=== PATIENT | male | born 1945 | race African-American/Black ===

== ENCOUNTER 2017-10-10 14:19 | Inpatient (IN) | payer MEDICARE, MEDICAID ==
[~2017-10-10] VITALS: Ht 180.3 cm; Wt 81.8 kg
[2017-10-10] MEDS ORDERED: VITAMIN B-1100 MG ORAL (18:08)
[2017-10-10] MEDS ORDERED: FOLIC ACID1 MG ORAL (18:08)
[2017-10-10] MEDS ORDERED: BISACODYL5 MG RECTAL (18:08)
[2017-10-10] MEDS ORDERED: FLEET ENEMA133 ML RECTAL (18:08)
[2017-10-10] MEDS ORDERED: MOM30 ML ORAL (18:08)
[2017-10-10] MEDS ORDERED: MULTIVITAMINS1 EAC2 ORAL (18:08)
[2017-10-10 18:38] VITALS: BP 123/69
[2017-10-10 20:00] VITALS: BP 130/68
[2017-10-10] MEDS ORDERED: Bisacodyl EC 5mg tab ORAL PRN (22:45)
[2017-10-10] MEDS ORDERED: Fleet's Enema 133ml RECTAL PRN (22:45)
[2017-10-10] MEDS ORDERED: Albuterol/Ipratropium 3ml neb HHN PRN (22:45)
[2017-10-10] MEDS ORDERED: Milk of Magnesia 30ml Ud ORAL PRN (22:45)
[2017-10-11] VITALS (7 sets, daily range): BP systolic 108–148; BP diastolic 57–75
[2017-10-11 08:12] LABS: BASOPHILS % (AUTO) 1.6 % (0.0-2.0); EOSINOPHILS % (AUTO) 2.3 % (0.0-3.0); HEMATOCRIT 42.6 % (42.0-52.0); HEMOGLOBIN 14.3 G/DL (14.2-18.0); LYMPHOCYTES % (AUTO) 47.3 % (20.0-45.0); MEAN CORPUSCULAR VOLUME 93 FL (80-99); MONOCYTES % (AUTO) 10.3 % (1.0-10.0); NEUTROPHILS % (AUTO) 38.6 % (45.0-75.0); PLATELET COUNT 158 K/UL (150-450); RED BLOOD COUNT 4.56 M/UL (4.70-6.10); RED CELL DISTRIBUTION WIDTH 11.3 % (11.6-14.8)
[2017-10-11 08:21] LABS: ALANINE AMINOTRANSFERASE 20 U/L (12-78); ALBUMIN 3.4 G/DL (3.4-5.0); ALBUMIN/GLOBULIN RATIO 0.9 (1.0-2.7); ALKALINE PHOSPHATASE 68 U/L (46-116); ANION GAP 8 mmol/L (5-15); ASPARTATE AMINO TRANSFERASE 19 U/L (15-37); BILIRUBIN,TOTAL 0.8 MG/DL (0.2-1.0); BLOOD UREA NITROGEN 15 mg/dL (7-18); CALCIUM 9.2 MG/DL (8.5-10.1); CARBON DIOXIDE 27 MMOL/L (21-32); CHLORIDE 105 MMOL/L (98-107); CREATININE 1.1 MG/DL (0.55-1.30); POTASSIUM 3.7 MMOL/L (3.5-5.1); SODIUM 140 MMOL/L (136-145)
[2017-10-11] MEDS: Azithromycin 250mg tab ORAL SCH (08:30)
[2017-10-11] MEDS: Thiamine 100mg tab ORAL SCH (08:32)
--- NOTE | 2017-10-11 09:27 | Diagnostic Imaging Report ---
Indication: Cough Technique: One view of the chest Comparison: none Findings: There is parenchymal volume loss parenchymal and pleural scarring in the right lung apex. A calcified granuloma is seen in the aortopulmonary window. There is some pleural calcification at the right lateral lung base. There is blunting of the right costophrenic angle which could indicate pleural thickening versus fluid. The left lung and pleural space are largely clear. No definite infiltrates Impression: Right-sided pleural thickening versus fluid Fairly extensive chronic pleural and parenchymal disease on the right, as described Evidence of old granulomatous disease
--- NOTE | 2017-10-11 13:00 | Consultation ---
History of Present Illness General Date patient seen: Oct 11, 2017 Present Illness HPI 71 yo male with hx of mmp and alcohol dependence came for medical stabilization. the pt is confused and is a poor historian he was unable to answer the questions. and is disoriented. the pt was calm and not agitated Allergies: Coded Allergies: No Known Allergies (Unverified , 10/10/17) Medication History Scheduled Folic Acid* (Folic Acid*), 1 MG ORAL DAILY, (Reported) Multivitamins* (Multivitamins*), 1 TAB ORAL DAILY, (Reported) Thiamine Hcl* (Vitamin B-1*), 100 MG ORAL DAILY, (Reported) Scheduled PRN Bisacodyl* (Dulcolax*), 10 MG RECTAL for Constipation, (Reported) Magnesium Hydroxide (Milk of Magnesia), 30 ML ORAL for Constipation, (Reported) Na Phos,M-B/Na Phos,Di-Ba* (Fleet Enema*), 133 ML RECTAL for Constipation, ( Reported) Patient History Limited by: medical condition History Provided By: Patient, Medical Record, PMD Healthcare decision maker N Resuscitation status Full Code Advanced Directive on File Past Medical/Surgical History Past Medical/Surgical History: (1) COPD EXERCABATION Review of Systems Psychiatric: Reports: prior hx, anxiety, depressed feelings, emotional problems Physical Exam General Appearance: no apparent distress, alert Neurologic: oriented x 3, responsive, depressed affect Last 24 Hour Vital Signs Date Time Temp Pulse Resp B/P (MAP) Pulse Ox O2 Delivery O2 Flow Rate FiO2 10/11/17 12:00 98.4 50 20 148/74 (98) 99 98.4 10/11/17 08:03 56 16 Room Air 21 10/11/17 08:00 Room Air 10/11/17 08:00 97.8 53 20 114/61 (78) 100 97.8 10/11/17 04:00 97.9 55 20 128/67 (87) 100 97.9 10/11/17 00:00 98.2 57 20 126/72 (90) 100 98.2 10/10/17 21:09 Room Air 10/10/17 20:00 98.4 58 20 130/68 (88) 100 98.4 10/10/17 18:38 98.1 57 21 123/69 (87) 100 98.1 10/10/17 18:20 Room Air Intake and Output 10/10/17 10/11/17 19:00 07:00 Output Total 800 ml Balance -800 ml Output Urine Total 800 ml Laboratory Tests Test 10/11/17 07:45 White Blood Count 4.0 K/UL (4.8-10.8) L Red Blood Count 4.56 M/UL (4.70-6.10) L Hemoglobin 14.3 G/DL (14.2-18.0) Hematocrit 42.6 % (42.0-52.0) Mean Corpuscular Volume 93 FL (80-99) Mean Corpuscular Hemoglobin 31.4 PG (27.0-31.0) H Mean Corpuscular Hemoglobin Concent 33.7 G/DL (32.0-36.0) Red Cell Distribution Width 11.3 % (11.6-14.8) L Platelet Count 158 K/UL (150-450) Mean Platelet Volume 8.3 FL (6.5-10.1) Neutrophils (%) (Auto) 38.6 % (45.0-75.0) L Lymphocytes (%) (Auto) 47.3 % (20.0-45.0) H Monocytes (%) (Auto) 10.3 % (1.0-10.0) H Eosinophils (%) (Auto) 2.3 % (0.0-3.0) Basophils (%) (Auto) 1.6 % (0.0-2.0) Sodium Level 140 MMOL/L (136-145) Potassium Level 3.7 MMOL/L (3.5-5.1) Chloride Level 105 MMOL/L (98-107) Carbon Dioxide Level 27 MMOL/L (21-32) Anion Gap 8 mmol/L (5-15) Blood Urea Nitrogen 15 mg/dL (7-18) Creatinine 1.1 MG/DL (0.55-1.30) Estimat Glomerular Filtration Rate mL/min (>60) Glucose Level 99 MG/DL (74-106) Calcium Level 9.2 MG/DL (8.5-10.1) Total Bilirubin 0.8 MG/DL (0.2-1.0) Aspartate Amino Transf (AST/SGOT) 19 U/L (15-37) Alanine Aminotransferase (ALT/SGPT) 20 U/L (12-78) Alkaline Phosphatase 68 U/L (46-116) Total Protein 7.4 G/DL (6.4-8.2) Albumin 3.4 G/DL (3.4-5.0) Globulin 4.0 g/dL Albumin/Globulin Ratio 0.9 (1.0-2.7) L Height (Feet): 5 Height (Inches): 11.00 Weight (Pounds): 183 Medications Current Medications Medications (Trade) Dose Ordered Sig/Aggie Route PRN Reason Start Time Stop Time Status Last Admin Dose Admin Albuterol/ Ipratropium (Albuterol/ Ipratropium) 3 ml Q4H PRN HHN Shortness of Breath 10/10/17 22:45 10/15/17 22:44 Azithromycin (Zithromax) 500 mg DAILY ORAL 10/11/17 09:00 10/18/17 08:59 10/11/17 08:30 Bisacodyl (Dulcolax) 10 mg NEEDED PRN ORAL Constipation 10/10/17 22:45 11/09/17 22:44 Chlorhexidine Gluconate (Kianna-Hex 2%) 1 applic DAILY@2000 TOPIC 10/11/17 20:00 11/10/17 19:59 Folic Acid (Folate) 1 mg DAILY ORAL 10/11/17 09:00 11/10/17 08:59 10/11/17 08:30 Magnesium Hydroxide (Mom) 30 ml NEEDED PRN ORAL Constipation 10/10/17 22:45 11/09/17 22:44 Multivitamins (Multivitamins) 1 tab DAILY ORAL 10/11/17 09:00 11/10/17 08:59 10/11/17 08:30 Prednisone (predniSONE) 40 mg DAILY ORAL 10/11/17 09:00 11/10/17 08:59 10/11/17 08:30 Sodium Phosphate (Fleet's Sodium Phosl Enema) 133 ml NEEDED PRN RECTAL Constipation 10/10/17 22:45 11/09/17 22:44 Thiamine HCl (Vitamin B1) 100 mg DAILY ORAL 10/11/17 09:00 11/10/17 08:59 10/11/17 08:32 Assessment/Plan Status: stable Assessment/Plan Dementia encephalopathy alcohol dependence valium prn folate thiamine Joel Vega MD Oct 11, 2017 13:00
[2017-10-11] MEDS ORDERED: Dyna-Hex 2% Top Sol 2oz TOPIC SCH (20:00)
--- NOTE | 2017-10-11 20:42 | Cardiology Progress Note ---
Assessment/Plan Assessment/Plan [id number] tft vit level ekg echo hold all neg ionotropic agents Objective Last 24 Hour Vital Signs Date Time Temp Pulse Resp B/P (MAP) Pulse Ox O2 Delivery O2 Flow Rate FiO2 10/11/17 16:00 98.2 54 20 115/65 (82) 97 98.2 10/11/17 12:00 98.4 50 20 148/74 (98) 99 98.4 10/11/17 08:03 56 16 Room Air 21 10/11/17 08:00 Room Air 10/11/17 08:00 97.8 53 20 114/61 (78) 100 97.8 10/11/17 04:00 97.9 55 20 128/67 (87) 100 97.9 10/11/17 00:00 98.2 57 20 126/72 (90) 100 98.2 10/10/17 21:09 Room Air Intake and Output 10/10/17 10/11/17 19:00 07:00 Output Total 800 ml Balance -800 ml Output Urine Total 800 ml Laboratory Tests Test 10/11/17 07:45 White Blood Count 4.0 K/UL (4.8-10.8) L Red Blood Count 4.56 M/UL (4.70-6.10) L Hemoglobin 14.3 G/DL (14.2-18.0) Hematocrit 42.6 % (42.0-52.0) Mean Corpuscular Volume 93 FL (80-99) Mean Corpuscular Hemoglobin 31.4 PG (27.0-31.0) H Mean Corpuscular Hemoglobin Concent 33.7 G/DL (32.0-36.0) Red Cell Distribution Width 11.3 % (11.6-14.8) L Platelet Count 158 K/UL (150-450) Mean Platelet Volume 8.3 FL (6.5-10.1) Neutrophils (%) (Auto) 38.6 % (45.0-75.0) L Lymphocytes (%) (Auto) 47.3 % (20.0-45.0) H Monocytes (%) (Auto) 10.3 % (1.0-10.0) H Eosinophils (%) (Auto) 2.3 % (0.0-3.0) Basophils (%) (Auto) 1.6 % (0.0-2.0) Sodium Level 140 MMOL/L (136-145) Potassium Level 3.7 MMOL/L (3.5-5.1) Chloride Level 105 MMOL/L (98-107) Carbon Dioxide Level 27 MMOL/L (21-32) Anion Gap 8 mmol/L (5-15) Blood Urea Nitrogen 15 mg/dL (7-18) Creatinine 1.1 MG/DL (0.55-1.30) Estimat Glomerular Filtration Rate mL/min (>60) Glucose Level 99 MG/DL (74-106) Calcium Level 9.2 MG/DL (8.5-10.1) Total Bilirubin 0.8 MG/DL (0.2-1.0) Aspartate Amino Transf (AST/SGOT) 19 U/L (15-37) Alanine Aminotransferase (ALT/SGPT) 20 U/L (12-78) Alkaline Phosphatase 68 U/L (46-116) Total Protein 7.4 G/DL (6.4-8.2) Albumin 3.4 G/DL (3.4-5.0) Globulin 4.0 g/dL Albumin/Globulin Ratio 0.9 (1.0-2.7) L Tj Ordonez MD Oct 11, 2017 20:42
[2017-10-11 22:52] LABS: APPEARANCE,URINE CLEAR; BILIRUBIN, URINE NEGATIVE (NEGATIVE); GLUCOSE, URINE (UA) NEGATIVE (NEGATIVE); KETONES,URINE NEGATIVE (NEGATIVE); LEUKOCYTE ESTERASE ,URINE NEGATIVE (NEGATIVE); NITRITE,URINE NEGATIVE (NEGATIVE); PH,URINE 6 (4.5-8.0); PROTEIN,URINE NEGATIVE (NEGATIVE); UROBILINOGEN,URINE 4 MG/DL (0.0-1.0)
[2017-10-11 22:55] LABS: COLOR,URINE YELLOW
--- NOTE | 2017-10-11 23:45 | History and Physical Report ---
DATE OF ADMISSION: 10/10/2017 NOTE: POOR AUDIO HISTORY OF PRESENT ILLNESS: The patient is a 71-year-old male, came to the hospital for COPD exacerbation, also was found to have bradycardia. The patient is IV line. cough sputum production. No fever. No chills. PAST MEDICAL HISTORY: Smokes half-pack a day. Denies any . MEDICATIONS: See the list. REVIEW OF SYSTEMS: Generalized weakness, tired, fatigue, and getting . PHYSICAL EXAMINATION: GENERAL: This is an elderly male who is currently awake and feeling okay. VITAL SIGNS: Blood pressure is 130/70, pulse 80. HEENT: NAD. CHEST: Bilateral few crackles and wheezes. CARDIOVASCULAR: Regular rhythm. No gallop. No murmur. ABDOMEN: Soft. Positive bowel sounds. Nontender. EXTREMITIES: No swelling. GENITOURINARY: Deferred. LABORATORY AND DIAGNOSTIC DATA: this morning. ASSESSMENT: 1. Acute chronic obstructive pulmonary disease exacerbation. 2. Hypertension. 3. Bradycardia. 4. Generalized weakness. PLAN: We will add steroid, bronchodilator treatments. Continue . Consider cardiology consult for bradycardia. Regan Thompson M.D. DR: ALEXSANDER JOB#: [id number] CC:
[2017-10-12] VITALS: BP_SYST 115; BP_SYST 118; BP_SYST 120; BP_DIAS 58; BP_DIAS 62; BP_DIAS 68
--- NOTE | 2017-10-12 00:45 | Consultation ---
DATE OF CONSULTATION: 10/11/2017 CARDIOLOGY CONSULTATION CONSULTING PHYSICIAN: Tj Ordonez M.D. REFERRING PHYSICIAN: Regan Thompson M.D. REASON FOR REFERRAL: Bradycardia. HISTORY OF PRESENT ILLNESS: This is an elderly gentleman who is a poor historian. The patient is admitted to the hospital for COPD with exacerbation. The patient was noted to have some bradycardia, for which consultation requested. He really has not had any pain in the chest or shortness of breath, although he does wake up at night because of shortness of breath. He is able to go back to bed. No dizziness or lightheadedness. PAST MEDICAL HISTORY: According to chart, history of schizophrenia, alcohol abuse intoxication, anemia, psychotic disorder, gastroesophageal reflux disease with esophagitis, urinary tract infections, systemic hypertension, chronic obstructive pulmonary disease, sepsis, pleural effusion, and pulmonary fibrosis. MEDICATIONS: His medications at the convalescent facility include Dulcolax, , folic acid, milk of magnesia, multivitamins. ALLERGIES: He reportedly is allergic to Prolixin. SOCIAL HISTORY: He smokes and drinks alcoholic beverages. Does not use drugs. REVIEW OF SYSTEMS: GASTROINTESTINAL: He has had some nausea. GENITOURINARY: Negative. PULMONARY: Positive for coughing. CONSTITUTION: Fevers. NEUROLOGIC: Negative. PHYSICAL EXAMINATION: GENERAL: Shows an elderly gentleman, in no respiratory distress. NECK: Supple. No jugular venous distention. LUNGS: Rather clear to auscultation and percussion. CARDIAC: Regular rhythm. Bradycardic. No heaves, thrills, or gallops noted. ABDOMEN: Soft and nontender. Positive bowel sounds. EXTREMITIES: There is no clubbing, cyanosis, or edema. LABORATORY AND DIAGNOSTIC DATA: White count of 4, hemoglobin 14.3, and platelet count of 158. Sodium is 140, potassium 3.7, chloride 105, bicarbonate 26, BUN of 15, creatinine 0.8, and glucose of 99. Calcium is 9.2. Albumin of 3.4. He has had a chest x-ray performed today and that showed right-sided pleural thickness versus fluid with extensive chronic pleural parenchymal disease on the right side. His electrocardiogram shows sinus bradycardia, first-degree AV block, left anterior fascicular block, basically borderline trifascicular block. ASSESSMENT AND PLAN: 1. Bradycardia. 2. Trifascicular block. 3. Interstitial lung disease, pulmonary fibrosis. 4. Chronic obstructive pulmonary disease. 5. History of pleural effusion. 6. Schizophrenia per records. 7. Gastroesophageal reflux disease. Dr. Thompson, this patient was seen in cardiac consultation. The patient is somewhat bradycardic, but does not appear to be symptomatic from it. EKG will be repeated. Thyroid stimulating hormone and labs will be ordered for tomorrow morning. An echocardiogram will also be ordered and he is being treated for his pulmonary fibrosis and may need pulmonary evaluation. Tj Ordonez M.D. DR: NICHOLAS JOB#: [id number] CC:
[2017-10-12 04:00] VITALS: BP 136/68
[2017-10-12 06:30] LABS: CHOLESTEROL 161 MG/DL (< 200); HDL CHOLESTEROL 42 MG/DL (40-60); TRIGLYCERIDES 33 MG/DL (30-150)
[2017-10-12 08:00] VITALS: BP 133/58
[2017-10-12] MEDS: Thiamine 100mg tab ORAL SCH (08:32)
[2017-10-12] MEDS: Azithromycin 250mg tab ORAL SCH (08:32)
[2017-10-12 12:00] VITALS: BP 134/67
--- NOTE | 2017-10-12 12:40 | General Progress Note ---
Assessment/Plan Status: stable Assessment/Plan Dementia encephalopathy alcohol dependence mdd valium prn folate thiamine the pt was provided st/ro Subjective Date patient seen: Oct 12, 2017 Neurologic/Psychiatric: Reports: anxiety, depressed Allergies: Coded Allergies: No Known Allergies (Unverified , 10/10/17) Subjective the pt was asleep was able to answer the questions forgetful Objective Last 24 Hour Vital Signs Date Time Temp Pulse Resp B/P (MAP) Pulse Ox O2 Delivery O2 Flow Rate FiO2 10/12/17 12:00 98.6 46 18 134/67 (89) 98 98.6 10/12/17 08:00 Room Air 10/12/17 08:00 97.9 40 18 133/58 (83) 100 97.9 10/12/17 07:58 49 16 Room Air 21 10/12/17 04:00 97.3 45 20 136/68 (90) 100 97.3 10/12/17 00:00 98.2 57 20 120/68 (85) 98 98.2 10/11/17 21:00 Room Air 10/11/17 21:00 97.0 58 20 110/58 (75) 98 97.0 10/11/17 21:00 97.0 69 20 108/57 (74) 97 97.0 10/11/17 21:00 97.0 59 20 114/75 (88) 97 97.0 10/11/17 20:00 98.4 50 20 127/65 (85) 98 98.4 10/11/17 20:00 58 16 Room Air 21 10/11/17 16:00 98.2 54 20 115/65 (82) 97 98.2 Intake and Output 10/11/17 10/12/17 19:00 07:00 Intake Total 800 ml 970 ml Output Total 150 ml 350 ml Balance 650 ml 620 ml Intake Oral 800 ml 970 ml Output Urine Total 150 ml 350 ml # Voids 2 6 # Bowel Movements 1 Laboratory Tests 10/11/17 21:20: Urine Color Yellow, Urine Appearance Clear, Urine pH 6, Urine Specific [place] 1.010, Urine Protein Negative, Urine Glucose (UA) Negative, Urine Ketones Negative, Urine Occult Blood 1+H, Urine Nitrite Negative, Urine Bilirubin Negative, Urine Urobilinogen 4H, Urine Leukocyte Esterase Negative, Urine RBC 2- 4H, Urine WBC 0-2, Urine Squamous Epithelial Cells Few, Urine Bacteria Few 10/12/17 04:20: Magnesium Level 1.6L, Troponin I 0.000, Pro-B-Type Natriuretic Peptide 86, Triglycerides Level 33, Cholesterol Level 161, LDL Cholesterol 121H, HDL Cholesterol 42, Cholesterol/HDL Ratio 3.8, Vitamin B12 Level 570, Thyroid Stimulating Hormone (TSH) 0.767, Cortisol AM Sample [Pending] Height (Feet): 5 Height (Inches): 11.00 Weight (Pounds): 180 General Appearance: no apparent distress, alert Neurologic: oriented x 3, responsive, depressed affect Joel Vega MD Oct 12, 2017 12:40
[2017-10-12 16:00] VITALS: BP 123/56
[2017-10-12 20:00] VITALS: BP 115/65
--- NOTE | 2017-10-12 20:23 | Cardiology Progress Note ---
Assessment/Plan Assessment/Plan 1. Bradycardia. 2. Trifascicular block. 3. Interstitial lung disease, pulmonary fibrosis. 4. Chronic obstructive pulmonary disease. 5. History of pleural effusion. 6. Schizophrenia per records. 7. Gastroesophageal reflux disease. tsh normal vit level ekg revwie hear rate 39 echo pending hold all neg chronotropic agents tele observation sicne tri fascualr block see if sig eneough pat to need pacing Subjective Cardiovascular: Denies: chest pain, lightheadedness, palpitations Respiratory: Denies: shortness of breath Gastrointestinal/Abdominal: Denies: abdominal pain Genitourinary: Denies: burning Objective Last 24 Hour Vital Signs Date Time Temp Pulse Resp B/P (MAP) Pulse Ox O2 Delivery O2 Flow Rate FiO2 10/12/17 20:00 98.2 55 20 115/65 (82) 100 98.2 10/12/17 19:52 58 16 Room Air 21 10/12/17 16:00 98.7 53 18 123/56 (78) 97 98.7 10/12/17 12:00 98.6 46 18 134/67 (89) 98 98.6 10/12/17 08:00 Room Air 10/12/17 08:00 97.9 40 18 133/58 (83) 100 97.9 10/12/17 07:58 49 16 Room Air 21 10/12/17 04:00 97.3 45 20 136/68 (90) 100 97.3 10/12/17 00:00 98.2 57 20 120/68 (85) 98 98.2 10/11/17 21:00 Room Air 10/11/17 21:00 97.0 58 20 110/58 (75) 98 97.0 10/11/17 21:00 97.0 69 20 108/57 (74) 97 97.0 10/11/17 21:00 97.0 59 20 114/75 (88) 97 97.0 General Appearance: alert Neck: supple Cardiovascular: normal rate, bradycardia Respiratory/Chest: chest wall non-tender, lungs clear Abdomen: normal bowel sounds, non tender, soft Extremities: no swelling Intake and Output 10/11/17 10/12/17 19:00 07:00 Intake Total 800 ml 970 ml Output Total 150 ml 350 ml Balance 650 ml 620 ml Intake Oral 800 ml 970 ml Output Urine Total 150 ml 350 ml # Voids 2 6 # Bowel Movements 1 Laboratory Tests Test 10/11/17 21:20 10/12/17 04:20 Urine Color Yellow Urine Appearance Clear Urine pH 6 (4.5-8.0) Urine Specific [place] 1.010 (1.005-1.035) Urine Protein Negative (NEGATIVE) Urine Glucose (UA) Negative (NEGATIVE) Urine Ketones Negative (NEGATIVE) Urine Occult Blood 1+ (NEGATIVE) H Urine Nitrite Negative (NEGATIVE) Urine Bilirubin Negative (NEGATIVE) Urine Urobilinogen 4 MG/DL (0.0-1.0) H Urine Leukocyte Esterase Negative (NEGATIVE) Urine RBC 2-4 /HPF (0 - 0) H Urine WBC 0-2 /HPF (0 - 0) Urine Squamous Epithelial Cells Few /LPF (NONE/OCC) Urine Bacteria Few /HPF (NONE) Magnesium Level 1.6 MG/DL (1.8-2.4) L Troponin I 0.000 ng/mL (0.000-0.056) Pro-B-Type Natriuretic Peptide 86 pg/mL (0-125) Triglycerides Level 33 MG/DL (30-150) Cholesterol Level 161 MG/DL (< 200) LDL Cholesterol 121 mg/dL (<100) H HDL Cholesterol 42 MG/DL (40-60) Cholesterol/HDL Ratio 3.8 (3.3-4.4) Vitamin B12 Level 570 PG/ML (193-986) Thyroid Stimulating Hormone (TSH) 0.767 uiU/mL (0.358-3.740) Cortisol AM Sample Pending Microbiology Date/Time Source Procedure Growth Status 10/10/17 19:00 Nasal Nares MRSA Culture - Final Staphylococcus Aureus - Mrsa Complete 10/10/17 19:00 Rectum VRE Culture - Final Enterococcus Faecium - Vre Complete 10/10/17 19:00 Rectum - Final NO CARBAPENEM-RESISTANT ENTEROBACTERI... Complete Tj Ordonez MD Oct 12, 2017 20:23
--- NOTE | 2017-10-12 21:15 | Progress Note ---
DATE: 10/12/2017 SUBJECTIVE: This 71-year-old male came with acute COPD and mild short of breath. No cough. No fever. He is clinically doing better. OBJECTIVE: VITAL SIGNS: His vital signs are stable. CHEST: Bilaterally few crackles. CARDIOVASCULAR: Regular rhythm. ABDOMEN: Soft. EXTREMITIES: CCE. NEUROLOGICAL: No focal deficit. ASSESSMENT: 1. Acute chronic obstructive pulmonary disease. 2. Bradycardia. 3. Hypertension. PLAN: Continue p.o. prednisone, antibiotic and bronchodilator treatments. Regan Thompson M.D. DR: ALEXSANDER JOB#: [id number] CC:
--- NOTE | 2017-10-12 23:30 | Consultation ---
DATE OF CONSULTATION: 10/12/2017 INFECTIOUS DISEASE CONSULTATION CONSULTING PHYSICIAN: Jaqui Rodríguez M.D. REQUESTING PHYSICIAN: Regan Thompson M.D. REASON FOR CONSULTATION: COPD exacerbation with bronchitis . Recommendation for antibiotics treatment. HISTORY OF PRESENT ILLNESS: The patient is a 71-year-old man with past medical history of schizophrenia, alcohol abuse, anemia, psych disorder, GERD, UTI, hypertension, COPD, and pleural effusion with pulmonary fibrosis, presented to [facility] emergency room with exacerbation of his COPD. The patient also was coughing and having mild shortness of breath. He was noted to have also bradycardia. The patient had a chest x-ray in the emergency room, it showed right-sided pleural thickening with fluid and chronic fibrotic changes due to COPD, so he was started on Zithromax. An Infectious Disease consultation was requested for further evaluation and management. PAST MEDICAL HISTORY: Significant for schizophrenia, alcohol abuse intoxication, anemia, psychotic disorder, GERD, esophagitis, UTI, hypertension, COPD, sepsis, pleural effusion, and pulmonary fibrosis. PAST SURGICAL HISTORY: Not on record. MEDICATIONS: He is currently on Zithromax. For the rest of his medications, please refer to MAR. ALLERGIES: He is allergic to Prolixin. SOCIAL HISTORY: The patient lives at the shelter facility. No recent drugs, tobacco, or alcohol. REVIEW OF SYSTEMS: Unable to obtain, the patient is poor historian. PHYSICAL EXAMINATION: GENERAL: An elderly male, lying in bed, nonverbal, not responsive, not in acute distress. VITAL SIGNS: Temperature 98.6 degrees, pulse 46, respirations 19, blood pressure 134/67, and pulse oximetry 98% on room air. HEENT: Normocephalic and atraumatic. Pupils reactive to light. Moist oral mucosa. NECK: Supple. No lymphadenopathy. CARDIOVASCULAR: Regular rate and rhythm. No murmur. LUNGS: Diminished breathing sounds and wheezing, mainly on the right side. ABDOMEN: Soft, nontender, and nondistended. Normal bowel sounds. EXTREMITY: No edema or cyanosis. LABORATORY AND DIAGNOSTIC DATA: His white count 4, hemoglobin of 14.3, and platelet count of 158. BUN of 15 and creatinine of 1.1. Urinalysis showed negative leukocyte esterase, negative nitrites, wbcs 0-2, and few bacteria. Microbiology, his nares was positive for MRSA and rectum was positive for VRE. Imaging, chest x-ray showed right-sided pleural thickening versus fluid, had extensive chronic pleural and parenchymal disease on the right and evidence of old granulomatous disease. ASSESSMENT AND RECOMMENDATION: 1. COPD with exacerbation. Continue Zithromax for five days, bronchodilators, and continue steroids. 2. Bradycardia. Cardiology team is following. Rule out conduction system abnormalities and check thyroid function. 3. Right pleural thickening with chronic pleural effusion. Recommend pulmonary evaluation and further imaging with CT scan of the chest. If possible, pleural biopsy in the future if no improvement. Thank you for the consult. ID will continue to follow. Jaqui Rodríguez M.D. DR: AMADO JOB#: [id number] CC: [email or web address]
[2017-10-13] VITALS: BP 139/71
[2017-10-13 04:00] VITALS: BP 117/69
[2017-10-13 08:00] VITALS: BP 111/59
[2017-10-13] MEDS: Azithromycin 250mg tab ORAL SCH (09:37)
[2017-10-13] MEDS: Thiamine 100mg tab ORAL SCH (09:37)
[2017-10-13 12:00] VITALS: BP 143/73
--- NOTE | 2017-10-13 13:25 | General Progress Note ---
Assessment/Plan Assessment/Plan Dementia encephalopathy alcohol dependence mdd valium prn folate thiamine the pt was provided st/ro Subjective Date patient seen: Oct 13, 2017 Allergies: Coded Allergies: No Known Allergies (Unverified , 10/10/17) Subjective the pt was asleep was able to answer the questions forgetful Objective Last 24 Hour Vital Signs Date Time Temp Pulse Resp B/P (MAP) Pulse Ox O2 Delivery O2 Flow Rate FiO2 10/13/17 12:00 98.3 45 18 143/73 (96) 99 98.3 10/13/17 12:00 46 10/13/17 09:00 Room Air 10/13/17 08:00 56 10/13/17 08:00 98.0 45 18 111/59 (76) 99 98.0 10/13/17 04:00 98.0 45 18 117/69 (85) 99 98.0 10/13/17 04:00 47 10/13/17 00:00 98.0 53 22 139/71 (93) 100 98.0 10/13/17 00:00 49 10/12/17 20:55 Room Air 10/12/17 20:21 57 59 69 10/12/17 20:00 98.2 55 20 115/65 (82) 100 98.2 10/12/17 19:52 58 16 Room Air 21 10/12/17 16:00 98.7 53 18 123/56 (78) 97 98.7 Intake and Output 10/12/17 10/13/17 19:00 07:00 Intake Total 650 ml 320 ml Output Total 850 ml Balance -200 ml 320 ml Intake Oral 650 ml 320 ml Output Urine Total 850 ml # Voids 2 Height (Feet): 5 Height (Inches): 11.00 Weight (Pounds): 180 Joel Vega MD Oct 13, 2017 13:25
--- NOTE | 2017-10-13 14:44 | Infectious Diseases Prog Note ---
Assessment/Plan Problems: (1) COPD EXERCABATION Assessment & Plan: continue zithromax for 5 days (2) Pleural thickening Assessment & Plan: recommend pulmonary follow up and CT (3) Schizophrenia Assessment & Plan: continue psych meds Subjective Constitutional: Reports: no symptoms HEENT: Reports: no symptoms Respiratory: Reports: dry cough Breasts: Reports: no symptoms Cardiovascular: Reports: no symptoms Gastrointestinal/Abdominal: Reports: no symptoms Genitourinary: Reports: no symptoms Neurologic: Reports: no symptoms Psychiatric: Reports: no symptoms Skin: Reports: no symptoms Endocrine: Reports: no symptoms Hematologic: Reports: no symptoms Musculoskeletal: Reports: no symptoms Allergies: Coded Allergies: No Known Allergies (Unverified , 10/10/17) Objective Vital Signs Last 24 Hour Vital Signs Date Time Temp Pulse Resp B/P (MAP) Pulse Ox O2 Delivery O2 Flow Rate FiO2 10/13/17 12:00 98.3 45 18 143/73 (96) 99 98.3 10/13/17 12:00 46 10/13/17 09:00 Room Air 10/13/17 08:00 56 10/13/17 08:00 98.0 45 18 111/59 (76) 99 98.0 10/13/17 04:00 98.0 45 18 117/69 (85) 99 98.0 10/13/17 04:00 47 10/13/17 00:00 98.0 53 22 139/71 (93) 100 98.0 10/13/17 00:00 49 10/12/17 20:55 Room Air 10/12/17 20:21 57 59 69 10/12/17 20:00 98.2 55 20 115/65 (82) 100 98.2 10/12/17 19:52 58 16 Room Air 21 10/12/17 16:00 98.7 53 18 123/56 (78) 97 98.7 Height (Feet): 5 Height (Inches): 11.00 Weight (Pounds): 180 General Appearance: WD/WN, no acute distress HEENT: normocephalic, atraumatic, anicteric, mucous membranes moist Respiratory/Chest: chest wall non-tender, normal breath sounds, no respiratory distress, no accessory muscle use, decreased breath sounds Cardiovascular: normal peripheral pulses, normal rate, regular rhythm, no gallop/murmur, no JVD Abdomen: normal bowel sounds, soft, non tender, no organomegaly, non distended , no mass, no scars Extremities: no cyanosis, no clubbing Skin: no rash, no lesions, no ulcers Neurologic/Psychiatric: alert, oriented x 3, responsive Lymphatic: no neck adenopathy, no groin adenopathy Musculoskeletal: normal muscle bulk, no effusion Microbiology Date/Time Source Procedure Growth Status 10/10/17 19:00 Nasal Nares MRSA Culture - Final Staphylococcus Aureus - Mrsa Complete 10/10/17 19:00 Rectum VRE Culture - Final Enterococcus Faecium - Vre Complete 10/10/17 19:00 Rectum - Final NO CARBAPENEM-RESISTANT ENTEROBACTERI... Complete Current Medications Medications (Trade) Dose Ordered Sig/Aggie Route PRN Reason Start Time Stop Time Status Last Admin Dose Admin Albuterol/ Ipratropium (Albuterol/ Ipratropium) 3 ml Q4H PRN HHN Shortness of Breath 10/10/17 22:45 10/15/17 22:44 Azithromycin (Zithromax) 500 mg DAILY ORAL 10/11/17 09:00 10/18/17 08:59 10/13/17 09:37 Bisacodyl (Dulcolax) 10 mg NEEDED PRN ORAL Constipation 10/10/17 22:45 11/09/17 22:44 Diazepam (Valium) 10 mg Q6H PRN ORAL For Anxiety 10/11/17 13:00 10/18/17 12:59 Folic Acid (Folate) 1 mg DAILY ORAL 10/11/17 09:00 11/10/17 08:59 10/13/17 09:38 Magnesium Hydroxide (Mom) 30 ml NEEDED PRN ORAL Constipation 10/10/17 22:45 11/09/17 22:44 Multivitamins (Multivitamins) 1 tab DAILY ORAL 10/11/17 09:00 11/10/17 08:59 10/13/17 09:38 Prednisone (predniSONE) 40 mg DAILY ORAL 10/11/17 09:00 11/10/17 08:59 10/13/17 09:38 Sodium Phosphate (Fleet's Sodium Phosl Enema) 133 ml NEEDED PRN RECTAL Constipation 10/10/17 22:45 11/09/17 22:44 Thiamine HCl (Vitamin B1) 100 mg DAILY ORAL 10/11/17 09:00 11/10/17 08:59 10/13/17 09:37 Jaqui Rodríguez M.D. Oct 13, 2017 14:44
--- NOTE | 2017-10-13 16:07 | Cardiology Report ---
APPROVED REPORT EXAM: Two-dimensional and M-mode echocardiogram with Doppler and color Doppler. INDICATION BRADYCARDIA M-Mode DIMENSIONS IVSd1.4 (0.7-1.1cm)Left Atrium (MM)2.8 (1.6-4.0cm) LVDd4.2 (3.5-5.6cm)Aortic Root3.2 (2.0-3.7cm) PWd1.7 (0.7-1.1cm)Aortic Cusp Exc.1.6 (1.5-2.0cm) IVSs2.0 cm LVDs2.6 (2.5-4.0cm) PWs1.8 cm Technically difficult study due to poor acoustical windows. Normal left ventricular chamber size, systolic function and wall motion to extent visualized. Left ventricular ejection fraction estimated to be 55-60 %. No evidence of left ventricular hypertrophy. No evidence of pericardial effusion. All other cardiac chamber sizes are within normal limits. Focal aortic valve sclerosis with adequate cusp excursion. Thickened mitral valve leaflets with normal excursion. Mitral annulus and aortic root calcification. Pulmonic valve not well visualized. Normal tricuspid valve structure. IVC at normal size with physiologic collapse. A color flow and spectral Doppler study was performed and revealed: No aortic regurgitation. Mild mitral regurgitation. Normal left ventricular diastolic function . Trace tricuspid regurgitation. Tricuspid systolic velocities suggests peak right ventricular systolic pressure of 21mmHg. No Pulmonic regurgitation present.
--- NOTE | 2017-10-13 16:57 | Cardiology Report ---
APPROVED REPORT EKG Measurement Heart [id number] Marked sinus bradycardia with 1st degree AV block Right bundle branch block Left anterior fascicular block Trifascicular block Abnormal ECG
--- NOTE | 2017-10-13 17:03 | Cardiology Report ---
APPROVED REPORT EKG Measurement Heart [id number] Sinus bradycardia with 1st degree AV block Right bundle branch block Left anterior fascicular block Trifascicular block Minimal voltage criteria for LVH, may be normal variant Septal infarct, age undetermined Abnormal ECG
--- NOTE | 2017-10-13 18:53 | Cardiology Progress Note ---
Assessment/Plan Assessment/Plan 1. Bradycardia. 2. Trifascicular block. 3. Interstitial lung disease, pulmonary fibrosis. 4. Chronic obstructive pulmonary disease. 5. History of pleural effusion. 6. Schizophrenia per records. 7. Gastroesophageal reflux disease. tsh normal vit level ekg revwie hear rate 39 echo noraml lv fucntion hold all neg chronotropic agents tele observation shwoed no profound pat no sx of pat Subjective Cardiovascular: Denies: chest pain, lightheadedness Respiratory: Denies: shortness of breath Genitourinary: Denies: burning Objective Last 24 Hour Vital Signs Date Time Temp Pulse Resp B/P (MAP) Pulse Ox O2 Delivery O2 Flow Rate FiO2 10/13/17 12:00 98.3 45 18 143/73 (96) 99 98.3 10/13/17 12:00 46 10/13/17 09:00 Room Air 10/13/17 08:00 56 10/13/17 08:00 98.0 45 18 111/59 (76) 99 98.0 10/13/17 04:00 98.0 45 18 117/69 (85) 99 98.0 10/13/17 04:00 47 10/13/17 00:00 98.0 53 22 139/71 (93) 100 98.0 10/13/17 00:00 49 10/12/17 20:55 Room Air 10/12/17 20:21 57 59 69 10/12/17 20:00 98.2 55 20 115/65 (82) 100 98.2 10/12/17 19:52 58 16 Room Air 21 General Appearance: no apparent distress Intake and Output 10/12/17 10/13/17 19:00 07:00 Intake Total 650 ml 320 ml Output Total 850 ml Balance -200 ml 320 ml Intake Oral 650 ml 320 ml Output Urine Total 850 ml # Voids 2 Microbiology Date/Time Source Procedure Growth Status 10/10/17 19:00 Nasal Nares MRSA Culture - Final Staphylococcus Aureus - Mrsa Complete 10/10/17 19:00 Rectum VRE Culture - Final Enterococcus Faecium - Vre Complete 10/10/17 19:00 Rectum - Final NO CARBAPENEM-RESISTANT ENTEROBACTERI... Complete Tj Ordonez MD Oct 13, 2017 18:53
--- NOTE | 2017-10-16 08:45 | Discharge Summary ---
Discharge Summary Discharge Summary _ DATE OF ADMISSION: 10/10/2017 DATE OF DISCHARGE: 10/13/2017 REASON FOR ADMISSION: 71 years old male with history of COPD , hypertension, schizophrenia , was admitted with COPD exacerbation and also found to have bradycardia. Patient admitted to telemetry floor for further management CONSULTANTS: court security officer Dr. Ordonez ID specialist psychiatrist [facility]: Patient admitted. Supplemental oxygen provided as needed to keep pulse oximetry above 92%. Nebulizing treatment with bronchodilator provided around the clock and as needed. Patient started on steroids which tapered and changed to oral. Chest x-ray revealed right-sided pleural thickening versus fluid. Fairly extensive chronic pleural and parenchymal disease on the right. Evidence of old granulomatous disease Patient was on empiric antibiotic. Cardiology consult was requested. Troponin was negative. EKG revealed sinus bradycardia with first-degree AV block, right bundle branch block, and left anterior fascicular block, which made it a trifascicular block. Patient was completely asymptomatic . TSH was within normal limits. Echocardiogram revealed preserved ejection fraction 55-60% . [employer] Analyst closely followed. Per court security officer, hold all negative chronotropic agent. Telemetry showed no profound bradycardia and patient was asymptomatic. Lipid panel revealed elevated LDL. Patient was educated on low-fat low-cholesterol cardiac diet. Psychiatrist seen and evaluated patient , diagnosed patient with alcohol dependency, dementia ,encephalopathy,major depressive disorder. Patient was started on folate and thiamine supplements. Valium was ordered on on as needed basis. Reality orientation and supportive therapy provided. Infectious disease doctor closely followed. Patient was on empiric antibiotic. Patient continued to be bradycardic , however remained completely asymptomatic . No chest pain, no shortness of breath, no dizziness or lightheadedness, no blackouts. Patient was stable for discharge to correction facility FINAL DIAGNOSES: Acute COPD exacerbation Bradycardia Trifascicular block Interstitial lung disease/pulmonary fibrosis GERD Hypertension Dementia Encephalopathy Major depressive disorder Alcohol dependence Schizophrenia DISCHARGE MEDICATIONS: List of medication was sent to correction facility DISCHARGE INSTRUCTIONS: Patient was discharged to correction facility. Outpatient follow-up with medical doctor at the facility I have been assigned to dictate discharge summary for this account. I was not involved in the patient's management. Raeann Ponce NP Oct 16, 2017 08:45
== END 2017-10-13 19:10 | DRG 190 ==
LOC: 4E 17:10 → 2E 10-12 21:22
DX: J44.1 Chronic obstructive pulmonary disease with (acute) exacerbation (principal); G93.40 Encephalopathy, unspecified; I45.3 Trifascicular block; J84.9 Interstitial pulmonary disease, unspecified; F17.200 Nicotine dependence, unspecified, uncomplicated; I10 Essential (primary) hypertension; R00.1 Bradycardia, unspecified; K21.9 Gastro-esophageal reflux disease without esophagitis; F32.9 Major depressive disorder, single episode, unspecified; F20.9 Schizophrenia, unspecified; F10.20 Alcohol dependence, uncomplicated; Z88.8 Allergy status to other drugs, medicaments and biological substances; F03.90 Unspecified dementia, unspecified severity, without behavioral disturbance, psychotic disturbance, mood disturbance, and anxiety
CPT/HCPCS: 36415; 71045; 80053; 80061; 81001; 82533; 82607; 83735; 83880; 84443; 84484; 85025; 87081; 93005; 93306; 94664